=== PATIENT | male | born 1980 | race Two or more races ===

== ENCOUNTER 2019-04-29 23:05 | Emergency (ER) | payer SELFPAY ==
[~2019-04-29] VITALS: Ht 170.2 cm; Wt 91.9 kg
--- NOTE | 2019-04-29 23:45 | NUR ---
assessment made. chart up for MD to see.
--- NOTE | 2019-04-30 | NUR ---
PA at bedside.
--- NOTE | 2019-04-30 00:14 | NUR ---
patient discharged with instruction. verbalized understanding.
[2019-04-30 00:15] VITALS: BP 143/82
== END 2019-04-30 00:17 | disposition home or self-care (01) ==
LOC: ED 23:59
DX: F41.1 Generalized anxiety disorder (principal); Z00.00 Encounter for general adult medical examination without abnormal findings; Z72.89 Other problems related to lifestyle
CPT/HCPCS: 99281

== ENCOUNTER 2019-06-11 08:14 | Emergency (ER) | payer OTHER ==
[~2019-06-11] VITALS: Ht 170.2 cm; Wt 85.5 kg
--- NOTE | 2019-06-11 08:42 | NUR ---
PT HERE WITH C/O "SENSATION OF PILLS BEIN STUCK IN THROAT SINCE LAST NIGHT. I MADE MYSELF THROW UP THIS MORNING AND NO PILLS CAME OUT BUT THEY STILL FEEL LIKE THEY ARE THERE." PT DRESSED IN GOWN AND ATTACHED TO MONITOR. ON ROOM AIR, LUNGS CLEAR, STRONG AND NON-PRODUCTIVE COUGH PRESENT. PT AAO X 4, NAD, CALL LIGHT WITHIN REACH. PA AT BEDSIDE FOR EXAM, NO OBVIOUS VISIBLE FOREIGN BODY IN THROAT ON EXAM. PT TOLERATED WATER WITH NO NAUSEA, VOMITTING, OR DIFFICULTY SWALLOWING.
--- NOTE | 2019-06-11 08:52 | NUR ---
BEDSIDE REPORT GIVEN TO NITZA PAYNE. CARE TRANSFERRED AT THIS TIME.
[2019-06-11] MEDS ORDERED: SERTRALINE (08:56)
[2019-06-11] MEDS ORDERED: MAALOX/HYOSCYAMINE/LIDOCAINE 45 ML BTL PO ONE (09:00)
[2019-06-11] MEDS ORDERED: MAALOX/HYOSCYAMINE/LIDOCAINE 45 ML BTL ONE (09:30)
--- NOTE | 2019-06-11 09:53 | NUR ---
cande leach at bedside to reassess pt.
[2019-06-11 10:28] VITALS: BP 115/72
== END 2019-06-11 10:30 | disposition home or self-care (01) ==
LOC: ED 09:24
DX: K20.9 Esophagitis, unspecified (principal)
CPT/HCPCS: 99283